=== PATIENT | male | born 1940 | race Caucasian/White ===

== ENCOUNTER → 2016-07-06 | Outpatient (CLI) | payer OTHER ==
[~2016-07-06] VITALS: Ht 170.2 cm; Wt 78.0 kg
[~2016-07-06] MED LIST: B COMPLETE1 EACH PO; BREO ELLIPTA I1 EACH IH; CINNAMON500 MG PO; CIPRO500 MG PO; CO Q-10200 MG PO; FISH OIL 1,4001 EACH PO; FLONASE16 G1 BOTH NARES; KEFLEX500 MG PO; MAGNESIUM250 MG PO; MESTINON60 MG PO; MUCINEX1200 MG PO; NAPROSYN500 MG PO; NORCO 5/3251 TABLET PO; PREDNISONE10 MG PO; PROSTAMEN SOFT1 EACH PO; PROVENTIL,2.5 MG/3 M IH; TOPROL XL50 MG PO; VENTOLIN HFA18 GM IH; VITAMIN B-1250 MG PO; VITAMIN B122500 MCG PO; VITAMIN D31000 UNIT PO; ZOCOR20 MG PO; [UNRECOGNIZED DRUG - CODE] PO
[2016-07-06 09:57] LABS: EOSINOPHIL (%) 0.8 % (0-5); EOSINOPHIL COUNT 0.1 K/uL (0-0.3); HEMATOCRIT 40.1 % (38.0-50.0); IMMATURE GRANULOCYTE (%) 1.9 % (0.0-0.7); IMMATURE GRANULOCYTE COUNT 0.2 K/uL; MCH 32.8 PG (29.0-34.0); MCHC 33.2 G/DL (30.0-36.0); MCV 98.8 FL (86-99); MEAN PLAT.VOLUME 9.9 uM^3 (9.0-12.4); MONOCYTE (%) 7.6 % (3-12); MONOCYTE COUNT 0.7 K/uL (0-0.8); NEUTROPHIL (%) 78.2 % (45-76); PLATELET COUNT 107 K/uL (156-360); RBC DIS.WIDTH-SD 58.3 % (39-53); RED BLOOD COUNT 4.06 M/uL (4.00-5.50)
[2016-07-06 10:05] LABS: INTER. NORMALIZED RATIO 1.2; PROTHROMBIN TIME 12.3 (9.2-11.2); PTT 24.7 (25-32)
== END | disposition home or self-care (01) ==
LOC: OPR 07-05 10:00 → EDSTATUS 09:00
PROVIDERS: Radiology Diagnostic Radiology; Surgery
PROC: 0TB03ZX Excision of Right Kidney, Percutaneous Approach, Diagnostic (ICD-10-PCS; principal; 2016-07-06)
DX: C64.1 Malignant neoplasm of right kidney, except renal pelvis (principal); Z88.8 Allergy status to other drugs, medicaments and biological substances
CPT/HCPCS: 77012; 80048; 85025; 85027; 85610; 85730; 87641; 88305; 88341 TC; 88342 TC; J3010

== ENCOUNTER 2016-09-18 21:30 | Inpatient (IN) | payer OTHER ==
[~2016-09-18] VITALS: Ht 170.2 cm; Wt 90.5 kg
[~2016-09-18 21:30] MED LIST changes: +ALBUTEROL IH; +ASPIR 8181 M1 PO; +FISH OIL 1,0001 EAC7 PO; +IPATROPIUM IH; +PROBIOTIC1 EAC5 PO; +VITAMIN B COMP1 EACH PO; +VITAMIN B1 PO; +VITAMIN D32000 UNI1 PO; +VITAMIN E400 UNIT PO
[2016-09-19 05:57] VITALS: BP 176/81
[2016-09-19] MEDS ORDERED: DOCUSATE SODIU100 MG PO (11:08)
[2016-09-19] MEDS ORDERED: ENDOCET 5-3251 EACH PO (11:08)
[2016-09-19 14:50] VITALS: BP 127/61
[2016-09-19 15:25] VITALS: BP 127/61
[2016-09-19 19:30] VITALS: BP 133/63
[2016-09-20 00:49] VITALS: BP 125/60
[2016-09-20 05:40] VITALS: BP 109/59
[2016-09-20 06:55] LABS: HEMATOCRIT 33.4 % (38.0-50.0); MCH 32.5 PG (29.0-34.0); MCHC 33.2 G/DL (30.0-36.0); MCV 97.7 FL (86-99); MEAN PLAT.VOLUME 10.5 uM^3 (9.0-12.4); PLATELET COUNT 111 K/uL (156-360); RBC DIS.WIDTH-CV 13.1 % (11.8-14.6); RBC DIS.WIDTH-SD 46.8 % (39-53); RED BLOOD COUNT 3.42 M/uL (4.00-5.50); WHITE BLOOD COUNT 10.7 K/uL (4.1-10.2)
[2016-09-20 07:20] LABS: ANION GAP 8 MEQ/L (2-14); CHLORIDE 102 MEQ/L (99-109); GFR ESTIMATE (CALCULATED) 37 mL/min/; GLUCOSE 96 mg/dL (70-99); POTASSIUM 4.5 MEQ/L (3.7-5.4); SAMPLE HEMOLYSIS CHECK 0; SAMPLE ICTERIC CHECK 0; SAMPLE LIPEMIA CHECK 0; SODIUM 139 MEQ/L (136-147); UREA NITROGEN (BUN) 32 mg/dL (9-23)
[2016-09-20 07:30] VITALS: BP 136/67
[2016-09-20 11:19] VITALS: BP 121/59
[2016-09-20 15:45] VITALS: BP 159/69
[2016-09-20 20:56] VITALS: BP 160/68
[2016-09-21] VITALS: BP 160/74
[2016-09-21 07:10] VITALS: BP 160/73
[2016-09-21 07:18] VITALS: BP 131/61
[2016-09-21 09:44] LABS: HEMATOCRIT 34.7 % (38.0-50.0); MCH 31.6 PG (29.0-34.0); MCHC 32.9 G/DL (30.0-36.0); MCV 96.1 FL (86-99); MEAN PLAT.VOLUME 10.4 uM^3 (9.0-12.4); PLATELET COUNT 115 K/uL (156-360); RED BLOOD COUNT 3.61 M/uL (4.00-5.50)
[2016-09-21 10:13] LABS: ANION GAP 9 MEQ/L (2-14); CHLORIDE 100 MEQ/L (99-109); GFR ESTIMATE (CALCULATED) 37 mL/min/; POTASSIUM 4.7 MEQ/L (3.7-5.4); SAMPLE HEMOLYSIS CHECK 0; SAMPLE ICTERIC CHECK 0; SAMPLE LIPEMIA CHECK 0; SODIUM 136 MEQ/L (136-147); UREA NITROGEN (BUN) 30 mg/dL (9-23)
[2016-09-21 10:14] LABS: GLUCOSE 196 mg/dL (70-99)
[2016-09-21 15:20] VITALS: BP 149/68
[2016-09-21 19:35] VITALS: BP 145/67
[2016-09-21 23:23] VITALS: BP 139/72
[2016-09-22 03:36] VITALS: BP 166/79
[2016-09-22 06:00] LABS: HEMATOCRIT 31.1 % (38.0-50.0); MCH 31.8 PG (29.0-34.0); MCHC 33.1 G/DL (30.0-36.0); MEAN PLAT.VOLUME 10.6 uM^3 (9.0-12.4); PLATELET COUNT 101 K/uL (156-360); RBC DIS.WIDTH-CV 12.8 % (11.8-14.6); RBC DIS.WIDTH-SD 44.9 % (39-53); RED BLOOD COUNT 3.24 M/uL (4.00-5.50); WHITE BLOOD COUNT 10.9 K/uL (4.1-10.2)
[2016-09-22 06:23] LABS: ANION GAP 7 MEQ/L (2-14); CHLORIDE 103 MEQ/L (99-109); GFR ESTIMATE (CALCULATED) 28 mL/min/; GLUCOSE 163 mg/dL (70-99); POTASSIUM 4.6 MEQ/L (3.7-5.4); SAMPLE HEMOLYSIS CHECK 0; SAMPLE ICTERIC CHECK 0; SAMPLE LIPEMIA CHECK 0; SODIUM 138 MEQ/L (136-147); UREA NITROGEN (BUN) 37 mg/dL (9-23)
[2016-09-22 07:48] VITALS: BP 126/57
[2016-09-22 12:02] VITALS: BP 142/67
[2016-09-22 16:02] VITALS: BP 152/67
[2016-09-23 00:10] VITALS: BP 165/77
[2016-09-23 05:51] LABS: HEMATOCRIT 30.1 % (38.0-50.0); MCH 32.3 PG (29.0-34.0); MCHC 33.2 G/DL (30.0-36.0); MCV 97.1 FL (86-99); MEAN PLAT.VOLUME 10.3 uM^3 (9.0-12.4); PLATELET COUNT 100 K/uL (156-360); RBC DIS.WIDTH-CV 12.9 % (11.8-14.6); RBC DIS.WIDTH-SD 46.1 % (39-53); WHITE BLOOD COUNT 9.9 K/uL (4.1-10.2)
[2016-09-23 06:24] LABS: ANION GAP 8 MEQ/L (2-14); CHLORIDE 107 MEQ/L (99-109); GFR ESTIMATE (CALCULATED) 29 mL/min/; GLUCOSE 182 mg/dL (70-99); POTASSIUM 4.4 MEQ/L (3.7-5.4); SAMPLE HEMOLYSIS CHECK 0; SAMPLE ICTERIC CHECK 0; SAMPLE LIPEMIA CHECK 0; SODIUM 140 MEQ/L (136-147); UREA NITROGEN (BUN) 42 mg/dL (9-23)
[2016-09-23 07:10] VITALS: BP 150/88
[2016-09-23 16:05] VITALS: BP 139/68
[2016-09-23 23:53] VITALS: BP 170/73
[2016-09-24 05:50] LABS: HEMATOCRIT 30.1 % (38.0-50.0); MCH 32.5 PG (29.0-34.0); MCHC 33.6 G/DL (30.0-36.0); MCV 96.8 FL (86-99); MEAN PLAT.VOLUME 9.9 uM^3 (9.0-12.4); PLATELET COUNT 102 K/uL (156-360); RBC DIS.WIDTH-SD 46.1 % (39-53); RED BLOOD COUNT 3.11 M/uL (4.00-5.50); WHITE BLOOD COUNT 9.7 K/uL (4.1-10.2)
[2016-09-24 06:14] LABS: ANION GAP 7 MEQ/L (2-14); CHLORIDE 109 MEQ/L (99-109); GFR ESTIMATE (CALCULATED) 27 mL/min/; GLUCOSE 149 mg/dL (70-99); POTASSIUM 4.6 MEQ/L (3.7-5.4); SAMPLE HEMOLYSIS CHECK 0; SAMPLE ICTERIC CHECK 0; SAMPLE LIPEMIA CHECK 0; SODIUM 140 MEQ/L (136-147); UREA NITROGEN (BUN) 43 mg/dL (9-23)
[2016-09-24 07:41] VITALS: BP 184/82
[2016-09-24 15:40] VITALS: BP 159/71
[2016-09-25 00:28] VITALS: BP 146/67
[2016-09-25 06:18] LABS: ANION GAP 7 MEQ/L (2-14); CHLORIDE 107 MEQ/L (99-109); GFR ESTIMATE (CALCULATED) 24 mL/min/; GLUCOSE 131 mg/dL (70-99); POTASSIUM 4.5 MEQ/L (3.7-5.4); SAMPLE HEMOLYSIS CHECK 0; SAMPLE ICTERIC CHECK 0; SAMPLE LIPEMIA CHECK 0; SODIUM 142 MEQ/L (136-147); UREA NITROGEN (BUN) 50 mg/dL (9-23)
[2016-09-25 07:58] VITALS: BP 163/75
[2016-09-25 11:56] LABS: ADD MIUA? YES; BILIRUBIN NEGATIVE; BLOOD MODERATE; COLOR STRAW ((YELLOW)); GLUCOSE (STRIP) 50; KETONES NEGATIVE; LEUKOCYTES NEGATIVE; NITRITE NEGATIVE; PROTEIN (STRIP) NEGATIVE; SPECIFIC GRAVITY 1.014 (1.000-1.030); UROBILINOGEN 0.2 MG/DL (0.2-1.0)
[2016-09-25 12:00] LABS: BACTERIA NONE SEEN /HPF; EPITHELIAL CELLS RARE /HPF; MUCUS TRACE /LPF; RED BLOOD CELLS 0-5 /HPF (0-5); WHITE BLOOD CELLS 0-5 /HPF (0-5)
[2016-09-25 12:24] LABS: UR CREATININE CONCENTRATION 62.2 MG/DL
[2016-09-25 12:25] LABS: UR CREATININE CONCENTRATION 62.3 MG/DL
[2016-09-25 16:05] VITALS: BP 134/62
[2016-09-26 01:50] VITALS: BP 171/77
[2016-09-26 07:05] VITALS: BP 186/85
[2016-09-26 07:08] LABS: ANION GAP 8 MEQ/L (2-14); CHLORIDE 104 MEQ/L (99-109); GFR ESTIMATE (CALCULATED) 29 mL/min/; GLUCOSE 121 mg/dL (70-99); POTASSIUM 4.6 MEQ/L (3.7-5.4); SAMPLE HEMOLYSIS CHECK 0; SAMPLE ICTERIC CHECK 0; SAMPLE LIPEMIA CHECK 0; SODIUM 140 MEQ/L (136-147); UREA NITROGEN (BUN) 57 mg/dL (9-23)
[2016-09-26 14:56] VITALS: BP 158/73
[2016-09-27 01:38] VITALS: BP 155/73
[2016-09-27 07:23] VITALS: BP 162/76; BP 62/76
[2016-09-27 07:23] LABS: ANION GAP 7 MEQ/L (2-14); CHLORIDE 106 MEQ/L (99-109); GFR ESTIMATE (CALCULATED) 29 mL/min/; GLUCOSE 92 mg/dL (70-99); POTASSIUM 4.4 MEQ/L (3.7-5.4); SAMPLE HEMOLYSIS CHECK 0; SAMPLE ICTERIC CHECK 0; SAMPLE LIPEMIA CHECK 0; SODIUM 141 MEQ/L (136-147); UREA NITROGEN (BUN) 60 mg/dL (9-23)
[2016-09-27 12:09] VITALS: BP 160/78
[2016-09-27] MEDS ORDERED: FUROSEMIDE20 MG PO (13:06)
[2016-09-27] MEDS ORDERED: AMLODIPINE BESY10 MG PO (13:06)
== END 2016-09-27 16:07 | disposition home or self-care (01) | DRG 656 ==
LOC: ENRESERV 21:30 → 2SOUTH 09-19 05:23 → ENRESERV 09-19 12:42 → 2SOUTH 09-19 13:42 → 5EAST 09-19 14:43 → 2SOUTH 09-19 16:09 → ENPENDDIS 09-27 → 5EAST 09-27 16:07
PROVIDERS: Internal Medicine; Urology
PROC: 0TT00ZZ Resection of Right Kidney, Open Approach (ICD-10-PCS; principal; 2016-09-19)
DX: C64.1 Malignant neoplasm of right kidney, except renal pelvis (principal); G70.00 Myasthenia gravis without (acute) exacerbation; J18.9 Pneumonia, unspecified organism; J47.0 Bronchiectasis with acute lower respiratory infection; J15.1 Pneumonia due to Pseudomonas; N17.0 Acute kidney failure with tubular necrosis; I25.10 Atherosclerotic heart disease of native coronary artery without angina pectoris; I10 Essential (primary) hypertension; E78.5 Hyperlipidemia, unspecified; N18.3 Chronic kidney disease, stage 3 (moderate); E87.70 Fluid overload, unspecified; N28.1 Cyst of kidney, acquired; N40.1 Benign prostatic hyperplasia with lower urinary tract symptoms; S30.1XXA Contusion of abdominal wall, initial encounter; J32.9 Chronic sinusitis, unspecified; I12.9 Hypertensive chronic kidney disease with stage 1 through stage 4 chronic kidney disease, or unspecified chronic kidney disease; Z79.52 Long term (current) use of systemic steroids; Z95.5 Presence of coronary angioplasty implant and graft; Z85.820 Personal history of malignant melanoma of skin; Z86.010 Personal history of colon polyps; Z87.442 Personal history of urinary calculi; Z87.01 Personal history of pneumonia (recurrent); Z68.28 Body mass index [BMI] 28.0-28.9, adult; Z80.7 Family history of other malignant neoplasms of lymphoid, hematopoietic and related tissues; I25.2 Old myocardial infarction; Z82.49 Family history of ischemic heart disease and other diseases of the circulatory system; Z83.3 Family history of diabetes mellitus
CPT/HCPCS: 71010; 71020; 76770; 80048; 80069; 80202; 81003; 82436; 82570; 84156; 84300; 84540; 85027; 87040; 87070; 87077; 87186; 87205; 88307; 89190; 93005; 94640; 94640 76; 94667; 94668; 94799; 99202; J0330; J0690; J0692; J1170; J1644; J1720; J1940; J2405; J2543; J2710; J2765; J2920; J2930; J3010; J3370; J7050; J7120

== ENCOUNTER 2017-08-30 23:03 | Inpatient (IN) | payer OTHER ==
[~2017-08-30] VITALS: Ht 168.9 cm; Wt 80.5 kg
[~2017-08-30 23:03] MED LIST changes: -ALBUTEROL IH; +AMLODIPINE BESY10 MG PO; +CYANOCOBALAM1000 MCG PO; +DOCUSATE SODIU100 MG PO; +DUONEB 2.5-0.5 M3 ML AEROSOL; +ENDOCET 5-3251 EACH PO; +FUROSEMIDE20 MG PO; -IPATROPIUM IH; -VITAMIN B122500 MCG PO
[2017-08-30 23:32] LABS: HEMATOCRIT 37.8 % (38.0-50.0); HEMOGLOBIN 12.6 G/DL (12.5-16.6); MCH 32.1 PG (29.0-34.0); MCHC 33.3 G/DL (30.0-36.0); MCV 96.4 FL (86-99); PLATELET COUNT 105 K/uL (156-360); RBC DIS.WIDTH-CV 13.6 % (11.8-14.6); RBC DIS.WIDTH-SD 48.5 % (39-53); RED BLOOD COUNT 3.92 M/uL (4.00-5.50)
[2017-08-30 23:43] LABS: CHLORIDE 104 mEq/L (99-109); POTASSIUM 4.8 mEq/L (3.7-5.4); SODIUM 140 mEq/L (136-147)
[2017-08-30 23:45] LABS: GLUCOSE 113 mg/dL (70-99); TOTAL PROTEIN 6.2 g/dL (6.4-8.3)
[2017-08-30 23:47] LABS: TOTAL BILIRUBIN 1.3 mg/dL (0.0-1.0)
[2017-08-30 23:48] LABS: ALKALINE PHOSPHATASE 65 IU/L (3-129)
[2017-08-30 23:49] LABS: CREATININE 2.5 mg/dL (0.6-1.3); GFR ESTIMATE (CALCULATED) 27 mL/min/ (58.99-99999)
[2017-08-30 23:50] LABS: AST (GOT) 19 IU/L (2-34); UREA NITROGEN (BUN) 46 mg/dL (9-23)
[2017-08-30 23:51] LABS: ALT (GPT) 25 IU/L (3-49)
[2017-08-30 23:52] LABS: LIPASE 26 U/L (1.0-51.0)
[2017-08-30 23:54] LABS: TROP-I INTERPRETATION NEGATIVE; TROPONIN-I 0.17 ng/mL (0.0-0.30)
[2017-08-31] MEDS ORDERED: FUROSEMIDE20 MG PO (00:46)
[2017-08-31] MEDS ORDERED: INCRUSE ELLI62.5 MCG IH (00:49)
[2017-08-31] MEDS ORDERED: SYMBICORT60 INHALA1 IH (00:49)
[2017-08-31] MEDS ORDERED: ZETIA10 MG PO (00:49)
[2017-08-31] MEDS ORDERED: CARVEDILOL12.5 MG PO (00:49)
[2017-08-31] MEDS ORDERED: [UNRECOGNIZED DRUG - OTHER] (00:50)
[2017-08-31] MEDS ORDERED: BENADRYL ALLERG25 MG PO (00:50)
[2017-08-31 02:25] VITALS: BP 135/72
[2017-08-31 07:12] LABS: HDL CHOLESTEROL 39 MG/DL (Desirable>=40); LDL CHOLESTEROL 76 mg/dL (Desirable<100); NON-HDL CHOLESTEROL 92 mg/dL (Desirable<160); TOTAL CHOLESTEROL 131 mg/dL (Desirable<200); TRIGLYCERIDES 81 MG/DL (Normal: <150)
[2017-08-31 07:13] LABS: TROPONIN-I 5.32 ng/mL (0.0-0.30)
[2017-08-31 07:14] LABS: TROP-I INTERPRETATION POSITIVE
[2017-08-31 07:21] VITALS: BP 121/56
[2017-08-31 07:47] LABS: HEMATOCRIT 34.8 % (38.0-50.0); HEMOGLOBIN 11.1 G/DL (12.5-16.6); MCH 30.9 PG (29.0-34.0); MCHC 31.9 G/DL (30.0-36.0); MCV 96.9 FL (86-99); PLATELET COUNT 102 K/uL (156-360); RBC DIS.WIDTH-CV 13.4 % (11.8-14.6); RBC DIS.WIDTH-SD 48.3 % (39-53); RED BLOOD COUNT 3.59 M/uL (4.00-5.50); WHITE BLOOD COUNT 7.1 K/uL (4.1-10.2)
[2017-08-31 08:00] LABS: CHLORIDE 106 MEQ/L (99-109); CREATININE 2.1 MG/DL (0.6-1.3); GFR ESTIMATE (CALCULATED) 33 mL/min/ (58.99-99999); GLUCOSE 97 mg/dL (70-99); MAGNESIUM 1.8 mg/dl (1.3-2.7); POTASSIUM 4.3 MEQ/L (3.7-5.4); SODIUM 142 MEQ/L (136-147); UREA NITROGEN (BUN) 43 mg/dL (9-23)
[2017-08-31 11:29] VITALS: BP 142/99
[2017-08-31 12:49] LABS: TROP-I INTERPRETATION POSITIVE; TROPONIN-I 3.84 ng/mL (0.0-0.30)
[2017-08-31 16:09] VITALS: BP 132/67
[2017-08-31 19:57] VITALS: BP 145/78
[2017-08-31 23:50] VITALS: BP 148/72
[2017-09-01 02:12] LABS: BASOPHIL (%) 0.2 % (0-1); EOSINOPHIL (%) 1.1 % (0-5); EOSINOPHIL COUNT 0.1 K/uL (0-0.3); HEMATOCRIT 36.2 % (38.0-50.0); IMMATURE GRANULOCYTE (%) 0.5 % (0.0-0.7); LYMPHOCYTE (%) 21.5 % (15-42); LYMPHOCYTE COUNT 1.8 K/uL (1.0-2.8); MCH 31.7 PG (29.0-34.0); MCHC 33.1 G/DL (30.0-36.0); MCV 95.8 FL (86-99); MONOCYTE (%) 10.1 % (3-12); MONOCYTE COUNT 0.8 K/uL (0-0.8); NEUTROPHIL (%) 66.6 % (45-76); NEUTROPHIL COUNT 5.5 K/uL (1.8-6.4); PLATELET COUNT 99 K/uL (156-360); RBC DIS.WIDTH-CV 13.5 % (11.8-14.6); RBC DIS.WIDTH-SD 47.6 % (39-53); RED BLOOD COUNT 3.78 M/uL (4.00-5.50); WHITE BLOOD COUNT 8.2 K/uL (4.1-10.2)
[2017-09-01 02:23] LABS: CHLORIDE 105 mEq/L (99-109); SODIUM 140 mEq/L (136-147)
[2017-09-01 02:24] LABS: GLUCOSE 102 mg/dL (70-99)
[2017-09-01 02:28] LABS: GFR ESTIMATE (CALCULATED) 35 mL/min/ (58.99-99999)
[2017-09-01 02:29] LABS: UREA NITROGEN (BUN) 45 mg/dL (9-23)
[2017-09-01 02:30] LABS: POTASSIUM 5.4 mEq/L (3.7-5.4)
[2017-09-01 04:01] VITALS: BP 129/64
[2017-09-01 08:28] VITALS: BP 130/67
[2017-09-01 12:20] VITALS: BP 117/64
[2017-09-01 16:37] VITALS: BP 118/68
[2017-09-01 19:00] VITALS: BP 147/65
[2017-09-01 23:45] VITALS: BP 118/65
[2017-09-02 03:38] VITALS: BP 146/77
[2017-09-02 05:27] LABS: BASOPHIL (%) 0.4 % (0-1); EOSINOPHIL (%) 1.5 % (0-5); EOSINOPHIL COUNT 0.1 K/uL (0-0.3); HEMATOCRIT 37.2 % (38.0-50.0); HEMOGLOBIN 11.9 G/DL (12.5-16.6); IMMATURE GRANULOCYTE (%) 0.6 % (0.0-0.7); LYMPHOCYTE (%) 21.8 % (15-42); LYMPHOCYTE COUNT 1.8 K/uL (1.0-2.8); MCH 30.6 PG (29.0-34.0); MCV 95.6 FL (86-99); MONOCYTE (%) 10.8 % (3-12); MONOCYTE COUNT 0.9 K/uL (0-0.8); NEUTROPHIL (%) 64.9 % (45-76); NEUTROPHIL COUNT 5.2 K/uL (1.8-6.4); PLATELET COUNT 108 K/uL (156-360); RBC DIS.WIDTH-CV 13.4 % (11.8-14.6); RBC DIS.WIDTH-SD 47.5 % (39-53); RED BLOOD COUNT 3.89 M/uL (4.00-5.50); WHITE BLOOD COUNT 8.1 K/uL (4.1-10.2)
[2017-09-02 05:54] LABS: CHLORIDE 103 MEQ/L (99-109); CREATININE 2.1 MG/DL (0.6-1.3); GFR ESTIMATE (CALCULATED) 33 mL/min/ (58.99-99999); GLUCOSE 102 mg/dL (70-99); SODIUM 141 MEQ/L (136-147); UREA NITROGEN (BUN) 45 mg/dL (9-23)
[2017-09-02 05:57] LABS: POTASSIUM 4.2 MEQ/L (3.7-5.4)
[2017-09-02 10:27] LABS: HEMATOCRIT 38.2 % (38.0-50.0); HEMOGLOBIN 12.6 G/DL (12.5-16.6); MCV 96.2 FL (86-99)
[2017-09-02 12:33] VITALS: BP 151/68
[2017-09-02 19:45] VITALS: BP 142/68
[2017-09-02 23:55] VITALS: BP 143/67
[2017-09-03 04:00] VITALS: BP 144/78
[2017-09-03 07:36] LABS: BASOPHIL (%) 0.2 % (0-1); EOSINOPHIL (%) 1.6 % (0-5); EOSINOPHIL COUNT 0.1 K/uL (0-0.3); HEMATOCRIT 37.8 % (38.0-50.0); HEMOGLOBIN 12.3 G/DL (12.5-16.6); IMMATURE GRANULOCYTE (%) 0.8 % (0.0-0.7); LYMPHOCYTE (%) 15.1 % (15-42); LYMPHOCYTE COUNT 1.3 K/uL (1.0-2.8); MCH 31.1 PG (29.0-34.0); MCHC 32.5 G/DL (30.0-36.0); MCV 95.7 FL (86-99); MONOCYTE (%) 10.1 % (3-12); MONOCYTE COUNT 0.9 K/uL (0-0.8); NEUTROPHIL (%) 72.2 % (45-76); NEUTROPHIL COUNT 6.3 K/uL (1.8-6.4); PLATELET COUNT 111 K/uL (156-360); RBC DIS.WIDTH-CV 13.4 % (11.8-14.6); RBC DIS.WIDTH-SD 47.4 % (39-53); RED BLOOD COUNT 3.95 M/uL (4.00-5.50); WHITE BLOOD COUNT 8.7 K/uL (4.1-10.2)
[2017-09-03 08:03] LABS: CHLORIDE 103 MEQ/L (99-109); CREATININE 2.3 MG/DL (0.6-1.3); GFR ESTIMATE (CALCULATED) 29 mL/min/ (58.99-99999); GLUCOSE 98 mg/dL (70-99); POTASSIUM 4.3 MEQ/L (3.7-5.4); SODIUM 142 MEQ/L (136-147); UREA NITROGEN (BUN) 47 mg/dL (9-23)
[2017-09-03 08:19] VITALS: BP 142/67
[2017-09-03] MEDS ORDERED: CLOPIDOGREL75 MG PO (10:41)
[2017-09-03 11:22] VITALS: BP 103/57
== END 2017-09-03 14:04 | disposition home or self-care (01) | DRG 281 ==
LOC: EME → EDBD 23:03 → EME 23:03 → EDOF 08-31 01:04 → ENRESERV 08-31 01:16 → 4SOUTH 08-31 01:56 → ENRESERV 08-31 07:49 → CANRESERV 08-31 08:20 → ENRESERV 08-31 08:20 → 4SOUTH 09-03 14:04
PROVIDERS: Emergency Medicine; Internal Medicine; Physician Assistant Medical
DX: I21.4 Non-ST elevation (NSTEMI) myocardial infarction (principal); I13.0 Hypertensive heart and chronic kidney disease with heart failure and stage 1 through stage 4 chronic kidney disease, or unspecified chronic kidney disease; N18.4 Chronic kidney disease, stage 4 (severe); I50.9 Heart failure, unspecified; G70.00 Myasthenia gravis without (acute) exacerbation; C77.9 Secondary and unspecified malignant neoplasm of lymph node, unspecified; D69.6 Thrombocytopenia, unspecified; I42.9 Cardiomyopathy, unspecified; I16.1 Hypertensive emergency; E78.5 Hyperlipidemia, unspecified; I44.0 Atrioventricular block, first degree; I45.10 Unspecified right bundle-branch block; I25.10 Atherosclerotic heart disease of native coronary artery without angina pectoris; I25.2 Old myocardial infarction; Z85.528 Personal history of other malignant neoplasm of kidney; Z90.5 Acquired absence of kidney; Z82.49 Family history of ischemic heart disease and other diseases of the circulatory system; Z95.5 Presence of coronary angioplasty implant and graft; S80.12XA Contusion of left lower leg, initial encounter; W22.01XA Walked into wall, initial encounter; Y92.230 Patient room in hospital as the place of occurrence of the external cause
CPT/HCPCS: 80048; 80053; 80061; 83690; 83735; 84484; 85014; 85018; 85025; 85027; 85730; 93005; 94640; 94667; 94668; 94799; 99281; 99284; J7512